=== PATIENT | female | born 1950 | race Caucasian/White ===

== ENCOUNTER 2019-10-28 14:04 | Inpatient (IN) ==
[2019-10-28] MEDS ORDERED: Naloxone 0.4 MG/ML INJ IVP PRN (16:22)
[2019-10-28] MEDS ORDERED: Nitroglycerin 0.4 MG TAB.SUBL SL PRN (17:40)
[2019-10-28 17:52] LABS: Hematocrit 30.3 % (35.3-44.9); Hemoglobin 9.9 g/dL (11.5-15.4); Mean Corpuscular HGB Conc 32.7 g/dL (31.6-35.5); Mean Corpuscular Hemoglobin 31.9 pg (28.0-33.3); Mean Corpuscular Volume 97.7 fL (83.0-100.0); Mean Platelet Volume 10.9 fL (9.4-12.4); Platelet Count 309 K/mcL (140-400); Red Cell Distribution Width 13.2 % (11.5-14.5); White Blood Count 10.7 K/mcL (4.3-11.1)
[2019-10-28 17:53] LABS: INR 1.9; Prothrombin Time 21.6 Seconds (9.4-12.1)
[2019-10-28 17:56] LABS: Activated Partial Thrombo Time 33.4 Seconds (26.0-36.0)
[2019-10-28] MEDS ORDERED: (Ezetimibe [Zetia] 10 MG) PO SCH (18:00)
[2019-10-28 18:08] LABS: Alanine Aminotransferase 11 Units/L (7-52); Albumin 3.5 g/dL (3.5-5.7); Albumin/Globulin Ratio 1.2 (1.1-2.2); Alkaline Phosphatase 61 Units/L (34-104); Aspartate Amino Transferase 14 Units/L (13-39); BUN/Creatinine Ratio 48 (6-26); Bilirubin,Total 0.5 mg/dL (0.3-1.0); Blood Urea Nitrogen 41 mg/dL (8-23); Calcium 9.4 mg/dL (8.6-10.3); Carbon Dioxide 28 mEq/L (23-29); Chloride 103 mEq/L (98-107); Globulin 2.9 g/dL (2.4-3.5); Glucose 114 mg/dL (70-105); Osmolality,Calculated 295 (280-300); Potassium 3.9 mEq/L (3.5-5.1); Sodium 137 mEq/L (136-145); Total Protein 6.4 g/dL (6.4-8.9); eGFR For African Americans > 60 (> 60); eGFR For Non-African Americans > 60 (> 60)
[2019-10-28] MEDS: Pantoprazole 40 MG VIAL IVP SCH (19:58)
[2019-10-28] MEDS: Metoprolol XL (24 HR) Succ 50 MG TAB.ER.24H PO SCH (20:08)
[2019-10-28] MEDS: Pregabalin 25 MG CAPSULE PO SCH (20:08)
[2019-10-28] MEDS: Aspirin Enteric Coated 81 MG Tablet PO SCH (20:08)
[2019-10-29 03:53] LABS: Basophils # 0.1 K/mcL (0.0-0.2); Basophils % 0.7 %; Eosinophils # 0.3 K/mcL (0.0-0.6); Eosinophils % 3.2 %; Hematocrit 27.4 % (35.3-44.9); Immature Granulocytes % 0.6 % (0-4); Lymphocytes % 27.7 %; Mean Corpuscular HGB Conc 32.8 g/dL (31.6-35.5); Mean Corpuscular Hemoglobin 31.7 pg (28.0-33.3); Mean Corpuscular Volume 96.5 fL (83.0-100.0); Mean Platelet Volume 10.8 fL (9.4-12.4); Monocytes # 0.9 K/mcL (0.0-1.3); Monocytes % 8.7 %; Neutrophils # 6.4 K/mcL (1.6-8.9); Platelet Count 261 K/mcL (140-400); Red Blood Count 2.84 M/mcL (3.82-4.97); Red Cell Distribution Width 13.4 % (11.5-14.5); Segmented Neutrophils % 59.1 %; White Blood Count 10.8 K/mcL (4.3-11.1)
[2019-10-29 04:10] LABS: BUN/Creatinine Ratio 43 (6-26); Blood Urea Nitrogen 37 mg/dL (8-23); Calcium 9.2 mg/dL (8.6-10.3); Carbon Dioxide 26 mEq/L (23-29); Chloride 105 mEq/L (98-107); Glucose 107 mg/dL (70-105); Osmolality,Calculated 295 (280-300); Potassium 4.4 mEq/L (3.5-5.1); Sodium 138 mEq/L (136-145); eGFR For African Americans > 60 (> 60); eGFR For Non-African Americans > 60 (> 60)
[2019-10-29] MEDS: Pantoprazole 40 MG VIAL IVP SCH ×2 (05:39→18:24)
[2019-10-29] MEDS ORDERED: Ringers Solution, Lactated 1,000 ML IVC SCH (09:45)
[2019-10-29] MEDS: Pregabalin 25 MG CAPSULE PO SCH ×2 (10:16→20:39)
[2019-10-29] MEDS: Furosemide 40 MG TABLET PO SCH (10:16)
[2019-10-29] MEDS: lisinopriL 5 MG TABLET PO SCH (10:16)
[2019-10-29] MEDS: Spironolactone 25 MG TABLET PO SCH (10:17)
[2019-10-29] MEDS: Metoprolol XL (24 HR) Succ 50 MG TAB.ER.24H PO SCH ×2 (10:17→20:40)
[2019-10-29] MEDS: Cyanocobalamin (B-12) 1,000 MCG TABLET PO SCH (10:17)
[2019-10-29] MEDS: Sucralfate 1 GM TABLET PO SCH ×2 (10:17→15:31)
[2019-10-29] MEDS: Isosorbide MONOnitrate (24 HR) 30 MG TAB.ER.24H PO SCH (10:17)
[2019-10-29] MEDS: ALPRAZolam 0.25 MG TABLET PO PRN (15:31)
[2019-10-29 15:39] LABS: Heparin anti-factor XA UFH 0.93 IU/mL (0.30-0.70); INR 1.4; Prothrombin Time 16.2 Seconds (9.4-12.1)
[2019-10-29] MEDS: Ondansetron 4 MG/2 ML VIAL IVP PRN (15:42)
[2019-10-29] MEDS ORDERED: SODIUM CHLORIDE/NAHCO3/KCL/PEG 4,000 ML SOLN.RECON PO ONE (17:00)
[2019-10-29] MEDS ORDERED: Heparin 25,000 UNIT/250 ML D5W 25,000 UNIT/250 ML IV.SOLN IVC SCH ×2 (18:00→19:45)
[2019-10-29] MEDS ORDERED: *HR* Heparin 5,000 UNIT/ML VIAL IVP ONE ×3 (18:00→19:47)
[2019-10-29] MEDS ORDERED: *HR* Heparin 5,000 UNIT/ML VIAL IVP PRN ×6 (18:00→19:47)
[2019-10-29 18:43] LABS: Hematocrit 28.6 % (35.3-44.9)
[2019-10-29 20:04] LABS: Hematocrit 29.2 % (35.3-44.9); Hemoglobin 9.3 g/dL (11.5-15.4); Mean Corpuscular HGB Conc 31.8 g/dL (31.6-35.5); Mean Corpuscular Volume 97.3 fL (83.0-100.0); Mean Platelet Volume 10.7 fL (9.4-12.4); Platelet Count 309 K/mcL (140-400); Red Cell Distribution Width 13.4 % (11.5-14.5); White Blood Count 12.3 K/mcL (4.3-11.1)
[2019-10-29 20:08] LABS: Heparin anti-factor XA UFH 0.67 IU/mL (0.30-0.70)
[2019-10-29 20:09] LABS: INR 1.4; Prothrombin Time 15.4 Seconds (9.4-12.1)
[2019-10-29] MEDS: Heparin 25,000 UNIT/250 ML D5W 25,000 UNIT/250 ML IV.SOLN IVC SCH (20:15)
[2019-10-29] MEDS: Aspirin Enteric Coated 81 MG Tablet PO SCH (20:39)
[2019-10-30] MEDS: Ondansetron 4 MG/2 ML VIAL IVP PRN ×2 (00:18→18:09)
[2019-10-30 00:54] LABS: Basophils # 0.1 K/mcL (0.0-0.2); Basophils % 0.7 %; Eosinophils # 0.3 K/mcL (0.0-0.6); Eosinophils % 1.9 %; Hematocrit 28.8 % (35.3-44.9); Hemoglobin 9.2 g/dL (11.5-15.4); Immature Granulocytes % 0.8 % (0-4); Lymphocytes # 2.6 K/mcL (0.6-4.6); Lymphocytes % 16.8 %; Mean Corpuscular HGB Conc 31.9 g/dL (31.6-35.5); Mean Corpuscular Hemoglobin 31.2 pg (28.0-33.3); Mean Corpuscular Volume 97.6 fL (83.0-100.0); Mean Platelet Volume 11.2 fL (9.4-12.4); Monocytes # 1.1 K/mcL (0.0-1.3); Monocytes % 7.2 %; Platelet Count 337 K/mcL (140-400); Red Blood Count 2.95 M/mcL (3.82-4.97); Red Cell Distribution Width 13.6 % (11.5-14.5); Segmented Neutrophils % 72.6 %; White Blood Count 15.2 K/mcL (4.3-11.1)
[2019-10-30 01:13] LABS: BUN/Creatinine Ratio 36 (6-26); Blood Urea Nitrogen 36 mg/dL (8-23); Calcium 9.1 mg/dL (8.6-10.3); Carbon Dioxide 28 mEq/L (23-29); Chloride 98 mEq/L (98-107); Glucose 129 mg/dL (70-105); Osmolality,Calculated 290 (280-300); Potassium 3.9 mEq/L (3.5-5.1); Sodium 135 mEq/L (136-145); eGFR For African Americans > 60 (> 60); eGFR For Non-African Americans 54 (> 60)
[2019-10-30] MEDS: Pantoprazole 40 MG VIAL IVP SCH ×2 (05:56→18:05)
[2019-10-30] MEDS: 0.9 % Sodium Chloride 1,000 ML IVC SCH (08:21)
[2019-10-30 08:58] LABS: INR 1.3; Prothrombin Time 14.4 Seconds (9.4-12.1)
[2019-10-30 09:10] LABS: Activated Partial Thrombo Time 30.3 Seconds (26.0-36.0)
[2019-10-30] MEDS ORDERED: Lidocaine -MPF 2% 2 ML VIAL ONE (09:43)
[2019-10-30] MEDS ORDERED: *HR* Propofol 200 MG/20 ML VIAL IVP ONE ×2 (09:43→10:24)
[2019-10-30] MEDS: Pregabalin 25 MG CAPSULE PO SCH ×2 (11:57→20:39)
[2019-10-30] MEDS: Metoprolol XL (24 HR) Succ 50 MG TAB.ER.24H PO SCH ×2 (11:57→20:39)
[2019-10-30] MEDS: Spironolactone 25 MG TABLET PO SCH (11:57)
[2019-10-30] MEDS: Isosorbide MONOnitrate (24 HR) 30 MG TAB.ER.24H PO SCH (11:58)
[2019-10-30] MEDS: lisinopriL 5 MG TABLET PO SCH (11:58)
[2019-10-30] MEDS: Sucralfate 1 GM TABLET PO SCH ×2 (11:58→15:05)
[2019-10-30] MEDS: Cyanocobalamin (B-12) 1,000 MCG TABLET PO SCH (11:58)
[2019-10-30] MEDS: Furosemide 40 MG TABLET PO SCH (11:58)
[2019-10-30] MEDS: Aspirin Enteric Coated 81 MG Tablet PO SCH (15:05)
[2019-10-30] MEDS: ALPRAZolam 0.25 MG TABLET PO PRN (15:08)
[2019-10-31] MEDS: Pantoprazole 40 MG VIAL IVP SCH ×2 (05:39→17:24)
[2019-10-31 07:29] LABS: Basophils # 0.1 K/mcL (0.0-0.2); Basophils % 0.6 %; Eosinophils # 0.3 K/mcL (0.0-0.6); Eosinophils % 3.1 %; Hematocrit 25.4 % (35.3-44.9); Hemoglobin 8.3 g/dL (11.5-15.4); Immature Granulocytes % 0.5 % (0-4); Lymphocytes # 1.8 K/mcL (0.6-4.6); Lymphocytes % 18.1 %; Mean Corpuscular HGB Conc 32.7 g/dL (31.6-35.5); Mean Corpuscular Volume 98.1 fL (83.0-100.0); Mean Platelet Volume 10.9 fL (9.4-12.4); Monocytes # 0.9 K/mcL (0.0-1.3); Monocytes % 8.5 %; Platelet Count 254 K/mcL (140-400); Red Blood Count 2.59 M/mcL (3.82-4.97); Red Cell Distribution Width 14.1 % (11.5-14.5); Segmented Neutrophils % 69.2 %
[2019-10-31] MEDS: Heparin 25,000 UNIT/250 ML D5W 25,000 UNIT/250 ML IV.SOLN IVC SCH (07:42)
[2019-10-31] MEDS: 0.9 % Sodium Chloride 1,000 ML IVC SCH (07:43)
[2019-10-31 07:46] LABS: BUN/Creatinine Ratio 27 (6-26); Blood Urea Nitrogen 24 mg/dL (8-23); Carbon Dioxide 25 mEq/L (23-29); Chloride 105 mEq/L (98-107); Glucose 116 mg/dL (70-105); Osmolality,Calculated 289 (280-300); Potassium 3.8 mEq/L (3.5-5.1); Sodium 137 mEq/L (136-145); eGFR For African Americans > 60 (> 60); eGFR For Non-African Americans > 60 (> 60)
[2019-10-31] MEDS: Sucralfate 1 GM TABLET PO SCH ×2 (07:48→16:28)
[2019-10-31] MEDS: Spironolactone 25 MG TABLET PO SCH (07:49)
[2019-10-31] MEDS: Aspirin Enteric Coated 81 MG Tablet PO SCH (07:49)
[2019-10-31] MEDS: Furosemide 40 MG TABLET PO SCH (07:50)
[2019-10-31] MEDS: Isosorbide MONOnitrate (24 HR) 30 MG TAB.ER.24H PO SCH (07:50)
[2019-10-31] MEDS: Pregabalin 25 MG CAPSULE PO SCH ×2 (07:51→20:56)
[2019-10-31] MEDS: Metoprolol XL (24 HR) Succ 50 MG TAB.ER.24H PO SCH (07:51)
[2019-10-31] MEDS: Cyanocobalamin (B-12) 1,000 MCG TABLET PO SCH (07:51)
[2019-10-31] MEDS: lisinopriL 5 MG TABLET PO SCH (07:51)
[2019-10-31] MEDS: Ondansetron 4 MG/2 ML VIAL IVP PRN (15:14)
[2019-10-31] MEDS: ALPRAZolam 0.25 MG TABLET PO PRN (19:24)
[2019-11-01 02:03] LABS: Hematocrit 23.8 % (35.3-44.9); Hemoglobin 7.6 g/dL (11.5-15.4)
[2019-11-01 02:33] LABS: BUN/Creatinine Ratio 25 (6-26); Blood Urea Nitrogen 24 mg/dL (8-23); Calcium 8.3 mg/dL (8.6-10.3); Carbon Dioxide 25 mEq/L (23-29); Chloride 104 mEq/L (98-107); Glucose 88 mg/dL (70-105); Osmolality,Calculated 289 (280-300); Potassium 3.6 mEq/L (3.5-5.1); Sodium 138 mEq/L (136-145); eGFR For African Americans > 60 (> 60); eGFR For Non-African Americans 58 (> 60)
[2019-11-01] MEDS: Pantoprazole 40 MG VIAL IVP SCH (05:55)
[2019-11-01] MEDS: Aspirin Enteric Coated 81 MG Tablet PO SCH (07:30)
[2019-11-01] MEDS: Sucralfate 1 GM TABLET PO SCH (07:30)
[2019-11-01] MEDS: Pregabalin 25 MG CAPSULE PO SCH (07:31)
[2019-11-01] MEDS: Furosemide 40 MG TABLET PO SCH (07:31)
[2019-11-01] MEDS: Cyanocobalamin (B-12) 1,000 MCG TABLET PO SCH (07:31)
[2019-11-01] MEDS ORDERED: 0.9 % Sodium Chloride 250 ML ONE (09:02)
[2019-11-01 11:43] VITALS: BP 116/61
[2019-11-01] MEDS: ALPRAZolam 0.25 MG TABLET PO PRN (12:52)
[2019-11-01 13:03] LABS: Hematocrit 29.7 % (35.3-44.9)
[2019-11-01 13:09] LABS: Hemoglobin 9.7 g/dL (11.5-15.4)
== END 2019-11-01 15:20 | disposition home or self-care (01) | DRG 377 ==
LOC: 3ANU → SUATTDRO 15:54
PROVIDERS: ADMIT Internal Medicine; ATTEND Internal Medicine

== ENCOUNTER 2020-01-12 08:16 | Inpatient (IN) ==
[2020-01-12] MEDS: 0.9 % Sodium Chloride 1,000 ML IVC SCH ×2 (09:11→14:06)
[2020-01-12] MEDS ORDERED: Ondansetron 4 MG/2 ML VIAL IVP ONE ×2 (09:49→11:39)
[2020-01-12] MEDS ORDERED: *HR* Metoprolol 5 MG/5 ML VIAL IVP PRN (09:49)
[2020-01-12] MEDS ORDERED: *HR* Promethazine 25 MG/ML VIAL IVP PRN (09:49)
[2020-01-12] MEDS ORDERED: *HR* FentaNYL (PF) 100 MCG/2 ML VIAL IVP PRN (09:49)
[2020-01-12] MEDS ORDERED: 0.9 % Sodium Chloride 1,000 ML ONE (10:12)
[2020-01-12] MEDS ORDERED: *HR* Heparin 10,000 UNIT/10 ML VIAL ONE (10:12)
[2020-01-12] MEDS ORDERED: ISOVUE-370 200 ML INFUS..BTL ONE (10:12)
[2020-01-12] MEDS ORDERED: Heparin 1,000 UNITS/500 mL 1,500 ML ONE (10:12)
[2020-01-12] MEDS ORDERED: Heparin 1,000 UNITS/500 mL 500 ML ONE (10:16)
[2020-01-12] MEDS ORDERED: *HR* FentaNYL (PF) 100 MCG/2 ML VIAL ONE (10:25)
[2020-01-12] MEDS ORDERED: *HR* Propofol 200 MG/20 ML VIAL IVP ONE (11:39)
[2020-01-12] MEDS ORDERED: Lidocaine -MPF 2% 5 ML VIAL SQ ONE (11:39)
[2020-01-12] MEDS ORDERED: *HR* Succinylcholine 200 MG/10 ML VIAL IVP ONE (11:39)
[2020-01-12] MEDS ORDERED: Protamine Sulfate 50 MG/5 ML VIAL IVP ONE ×4 (11:45→15:45)
[2020-01-12] MEDS ORDERED: Perflutren Lipid Microsphere 1.3 ML in 0.9 % Sodium Chloride 8.7 ML IVP PRN (12:02)
[2020-01-12] MEDS ORDERED: Nitroglycerin 0.4 MG TAB.SUBL SL PRN (12:04)
[2020-01-12] MEDS ORDERED: ALPRAZolam 0.25 MG TABLET PO PRN (12:04)
[2020-01-12] MEDS ORDERED: *HR* Atropine Sulfate 1 MG/10 ML SYRINGE ONE (19:36)
[2020-01-12] MEDS: Pregabalin 25 MG CAPSULE PO SCH (20:01)
[2020-01-13] MEDS: Aspirin Enteric Coated 81 MG Tablet PO SCH (10:06)
[2020-01-13] MEDS: lisinopriL 5 MG TABLET PO SCH (10:07)
[2020-01-13] MEDS: Ascorbic Acid 500 MG TABLET PO SCH (10:07)
[2020-01-13] MEDS: Cyanocobalamin (B-12) 1,000 MCG TABLET PO SCH (10:07)
[2020-01-13] MEDS: Metoprolol XL (24 HR) Succ 25 MG TAB.ER.24H PO SCH (10:08)
[2020-01-13] MEDS: Furosemide 40 MG TABLET PO SCH (10:08)
[2020-01-13] MEDS: Pregabalin 25 MG CAPSULE PO SCH ×2 (10:09→21:17)
[2020-01-13] MEDS: Spironolactone 25 MG TABLET PO SCH (10:09)
[2020-01-13 10:23] LABS: Basophils % 0.1 %; Hematocrit 34.1 % (35.3-44.9); Hemoglobin 10.9 g/dL (11.5-15.4); Immature Granulocytes % 0.4 % (0-4); Lymphocytes % 7.4 %; Mean Corpuscular Hemoglobin 30.5 pg (28.0-33.3); Mean Corpuscular Volume 95.5 fL (83.0-100.0); Mean Platelet Volume 11.4 fL (9.4-12.4); Monocytes # 0.8 K/mcL (0.0-1.3); Monocytes % 5.6 %; Platelet Count 232 K/mcL (140-400); Red Blood Count 3.57 M/mcL (3.82-4.97); Red Cell Distribution Width 13.1 % (11.5-14.5); Segmented Neutrophils % 86.5 %; White Blood Count 13.9 K/mcL (4.3-11.1)
[2020-01-13 10:34] LABS: INR 4.7; Prothrombin Time 53.1 Seconds (9.4-12.1)
[2020-01-13 10:42] LABS: BUN/Creatinine Ratio 25 (6-26); Blood Urea Nitrogen 25 mg/dL (8-23); Calcium 8.5 mg/dL (8.6-10.3); Carbon Dioxide 27 mEq/L (23-29); Chloride 103 mEq/L (98-107); Glucose 199 mg/dL (70-105); Osmolality,Calculated 294 (280-300); Potassium 3.7 mEq/L (3.5-5.1); Sodium 137 mEq/L (136-145); eGFR For African Americans > 60 (> 60); eGFR For Non-African Americans 55 (> 60)
[2020-01-13] MEDS ORDERED: *HR* Warfarin 2.5 MG TABLET PO SCH (18:00)
[2020-01-14 04:51] LABS: Basophils % 0.3 %; Eosinophils # 0.1 K/mcL (0.0-0.6); Eosinophils % 0.7 %; Hematocrit 32.7 % (35.3-44.9); Hemoglobin 10.6 g/dL (11.5-15.4); Immature Granulocytes % 0.4 % (0-4); Lymphocytes # 2.7 K/mcL (0.6-4.6); Lymphocytes % 20.2 %; Mean Corpuscular HGB Conc 32.4 g/dL (31.6-35.5); Mean Corpuscular Hemoglobin 31.3 pg (28.0-33.3); Mean Corpuscular Volume 96.5 fL (83.0-100.0); Mean Platelet Volume 11.6 fL (9.4-12.4); Monocytes # 1.5 K/mcL (0.0-1.3); Neutrophils # 9.1 K/mcL (1.6-8.9); Platelet Count 210 K/mcL (140-400); Red Blood Count 3.39 M/mcL (3.82-4.97); Red Cell Distribution Width 13.3 % (11.5-14.5); Segmented Neutrophils % 67.4 %; White Blood Count 13.5 K/mcL (4.3-11.1)
[2020-01-14 05:03] LABS: INR 3.4; Prothrombin Time 38.5 Seconds (9.4-12.1)
[2020-01-14 08:50] VITALS: BP 122/58
[2020-01-14] MEDS: Pregabalin 25 MG CAPSULE PO SCH (09:19)
[2020-01-14] MEDS: Ascorbic Acid 500 MG TABLET PO SCH (09:19)
[2020-01-14] MEDS: lisinopriL 5 MG TABLET PO SCH (09:20)
[2020-01-14] MEDS: Aspirin Enteric Coated 81 MG Tablet PO SCH (09:20)
[2020-01-14] MEDS: Spironolactone 25 MG TABLET PO SCH (09:20)
[2020-01-14] MEDS: Cyanocobalamin (B-12) 1,000 MCG TABLET PO SCH (09:20)
[2020-01-14] MEDS: Furosemide 40 MG TABLET PO SCH (09:20)
[2020-01-14] MEDS: Metoprolol XL (24 HR) Succ 25 MG TAB.ER.24H PO SCH (09:20)
== END 2020-01-14 11:40 | disposition home or self-care (01) | DRG 274 ==
LOC: 2NNU 08:16 → ICNU 12:01 → 2ANU 01-13 20:03
PROVIDERS: ADMIT Internal Medicine Cardiovascular Disease; ATTEND Internal Medicine Cardiovascular Disease